=== PATIENT | male | born 1995 | race Caucasian/White ===

== ENCOUNTER 2017-07-20 14:15 | Emergency (ER) | payer OTHER ==
[2017-07-20 14:20] VITALS: RESP 16; TEMP 98.4
--- NOTE | 2017-07-20 15:38 | EDPHY ---
H & P Time Seen by Provider: 07/20/17 15:20 HPI/ROS: CHIEF COMPLAINT: Right elbow injury HISTORY OF PRESENT ILLNESS: 21-year-old male presents to the emergency department with injury to the right elbow. The patient fell snowboarding yesterday and somehow fell on his right outstretched hand and twisted his elbow. He complains of isolated pain in the right elbow. Denies any other trauma or injury. He is right-hand dominant. He has pain with range of motion. He has limited extension. ROS: Denies numbness or tingling in his fingers, pain in his right wrist or shoulder. Past Medical/Surgical History: Multiple orthopedic surgeries. Social History: Lives in [place]. He is a senior at [employer] Smoking Status: Never smoked Physical Exam: On examination patient has obvious effusion noted to the right elbow. Limited extension of the right elbow secondary to pain and swelling. Reproducible pain with palpation diffusely to palpate the right elbow. Patient has pain with full supination. Nontender to palpate in the right humerus or right shoulder. Full range of motion of the right wrist. Normal sensation to light touch with normal 2 point discrimination is right-hand. Strong radial pulse at the right wrist. Constitutional: Initial Vital Signs Temperature (C) 36.9 C 07/20/17 14:16 Heart Rate 86 07/20/17 14:16 Respiratory Rate 16 07/20/17 14:16 Blood Pressure 134/86 H 07/20/17 14:16 O2 Sat (%) 96 07/20/17 14:16 O2 Delivery Mode Room Air Allergies/Adverse Reactions: No Known Allergies Allergy (Unverified 07/20/17 14:20) Home Medications: Medication Instructions Recorded NK [No Known Home Meds] 07/20/17 MDM/Departure - MDM Imaging Results: Imaging Impressions Elbow X-Ray 07/20/17 14:21 Impression: No definite fracture although possible hemarthrosis could reflect a radiographically occult fracture. Conservative management and follow-up radiography recommended in 7-10 days. Imaging: I viewed and interpreted images myself Procedures: Patient was placed in long-arm Ortho Glass splint and examined post application in good placement with normal MERCHANDISE DIRECTOR. ED Course/Re-evaluation: 21-year-old male presents to the emergency department with right elbow injury. X -rays reveal no fractures, however anterior and posterior fat pads noted. Patient was placed in long-arm splint and given orthopedic referral. - Depart Disposition: Home, Routine, Self-Care Clinical Impression: Occult fracture of right elbow Qualifiers: Encounter type: initial encounter Fracture type: closed Qualified Code(s): S42.401A - Unspecified fracture of lower end of right humerus, initial encounter for closed fracture Condition: Good Instructions: Elbow Fracture (ED), Elbow Sprain (ED) Additional Instructions: Keep splint on and sling on until follow up with orthopedic surgeon in one week. Ibuprofen 600 mg every 8 hr for pain as directed. Ice. Referrals: Reagan Proctor MD [Medical Doctor] - 2-3 days without fail (Orthopedic surgeon on-call)
[2017-07-20 15:53] VITALS: BP 126/74; PULSE 70; O2SAT 94
== END 2017-07-20 15:51 | disposition home or self-care (01) ==
DX: S42.401A Unspecified fracture of lower end of right humerus, initial encounter for closed fracture (principal); V00.318A Other snowboard accident, initial encounter; Y93.23 Activity, snow (alpine) (downhill) skiing, snowboarding, sledding, tobogganing and snow tubing